=== PATIENT | female | born 1970 | race Caucasian/White ===

== ENCOUNTER 2024-01-25 05:53 | Observation (INO) ==
--- NOTE | 2024-01-10 12:52 | Anesthesiology Consultation ---
Date of Service January 10, 2024 Assessment & Plan (1) Encounter for pre-operative examination: - check urine test STAT am DOS. - Per assessment nurse on 01/10/24: No known infectious disease contacts, current infectious disease symptoms in past 10 days or COVID positive test result in the past 30 days. Chart Review Chart Review: Acceptable Risk for Surgery and Patient NOT seen in Pre Admission Testing History Surgery Operation Date: 01/25/24 07:30 Proposed Procedures p Robotic Laparoscopic Right Renal Cyst Decortfiication - Randal Shaikh MD Height/Weight Height: 6 ft Weight: 70.307 kg Allergies Allergy/AdvReac Type Severity Reaction Status Date / Time erythromycin base Allergy Unknown Rash Verified 01/10/24 12:20 Penicillins Allergy Unknown Rash Verified 01/10/24 12:20 Medications Home Medications Medication Instructions Recorded Confirmed Last Taken cholecalciferol (vitamin D3) 50 50 mcg PO DAILY 11/11/23 01/10/24 Unknown mcg (2,000 unit) capsule levothyroxine 125 mcg capsule 112 mcg PO QAM 11/11/23 01/10/24 Unknown sertraline 50 mg tablet 50 mg PO QPM 11/11/23 01/10/24 Unknown vitamin B complex 1 tab PO DAILY 11/11/23 01/10/24 Unknown Past Medical History Medical History (Updated 01/10/24 @ 12:48 by Cherrie Loyd PA-C) Anxiety CKD (chronic kidney disease), stage II History of hyperthyroidism radioactive iodine tx ~25-30 yrs ago Hypothyroidism Renal cyst Past Family History Family History Other No family history of adverse response to anesthesia Past Surgical History Surgical History History of esophagogastroduodenoscopy (EGD) Hx of colonoscopy Hx of melanoma excision right arm Hx of wisdom tooth extraction Social History Smoking Status: Never smoker Do You Dip or Chew Tobacco: No Hx Alcohol Use: No Hx Substance Use: No substance use type: does not use Lab Results Anesthesia Preop Results Results Anesthesia Widget: WBC 4.30 K/uL L 12/22/23 Hgb 13.3 g/dL (12.0-16.0) 12/22/23 Hct 40 % (37.0-47.0) 12/22/23 Plt 235 K/uL (130.0-400.0) 12/22/23 Na 140 mmol/L (136-145) 12/22/23 K 3.9 mmol/L (3.5-5.1) 12/22/23 Cl 104 mmol/L (98-107) 12/22/23 CO2 25 mmol/L (21-32) 12/22/23 BUN 14 mg/dL (7-18) 12/22/23 Creat 0.80 mg/dL (0.6-1.2) 12/22/23 Glucose Level 87 mg/dL (70-99) 12/22/23 Testing Laboratory Results Urine culture: < 10,000 col/mL of mixed organisms Electrocardiogram Date: 12/22/23 NSR, rate 71 bpm Chest X-Ray Date: 12/22/23 No acute cardiopulmonary disease. Other Testing Abdomen pelvis CT 06/25/24 Liver is mildly enlarged measuring 18.4 cm Large fluid signal cystic lesion of the upper pole right kidney measures 5.6 x 5.6 x 6.1 cm
[~2024-01-25 05:53] MED LIST: ALLERGY Noted to ORDERED Medication SCH
[2024-01-25] MEDS: LR 15ML/HR IV SCH (06:29)
[2024-01-25] MEDS ORDERED: fentaNYL citrate PF 100 MCG/2 ML VIAL IV PRN (07:01)
[2024-01-25] MEDS ORDERED: HYDROmorphone INJ 1 MG/ML SYRINGE IV PRN (07:01)
[2024-01-25] MEDS ORDERED: ATROPINE SULFATE 0.1 MG/ML 10ML SYR IV PRN (07:01)
[2024-01-25] MEDS ORDERED: PROMETHAZINE HCL 6.25 MG in SODIUM CHLORIDE 0.9% 50 ML IV PRN (07:01)
[2024-01-25] MEDS ORDERED: ePHEDrine sulfate 50 MG/ML AMP IV PRN (07:01)
[2024-01-25] MEDS ORDERED: ONDANSETRON INJ 2 MG/ML 2 ML VIAL IV PRN ×2 (07:01→10:21)
[2024-01-25] MEDS: SCOPOLAMINE 1 MG/72 HR TDSY PATCH TD ONE ×2 (07:03)
[2024-01-25] MEDS ORDERED: MIDAZOLAM HCL 1 MG/ML 2ML VIAL ONE (07:20)
[2024-01-25] MEDS ORDERED: PROPOFOL IV EMULSION 10 MG/ML 20 ML VIAL IV ONE (07:20)
[2024-01-25] MEDS ORDERED: LIDOCAINE 2% 2 ML VIAL/AMP(20MG/ML) INFIL ONE (07:20)
[2024-01-25] MEDS ORDERED: fentaNYL citrate PF 100 MCG/2 ML VIAL ONE ×2 (07:20→08:18)
[2024-01-25] MEDS ORDERED: ONDANSETRON INJ 2 MG/ML 2 ML VIAL ONE (07:21)
[2024-01-25] MEDS ORDERED: DEXAMETHASONE SOD INJ 4 MG/ML VIAL ONE (07:21)
[2024-01-25] MEDS ORDERED: ROCURONIUM BROMIDE 10 MG/ML 5 ML VIAL IV ONE ×2 (07:21→08:40)
[2024-01-25] MEDS ORDERED: MANNITOL 25% 12.5 GM/50 ML VIAL IV ONE (07:26)
[2024-01-25] MEDS ORDERED: ACETAMINOPHEN 1000 MG/100 ML IV IV ONE (07:26)
--- NOTE | 2024-01-25 07:27 | History & Physical Report ---
Date of Service January 25, 2024 Assessment & Plan (1) Renal cyst: Plan Right renal cyst decortication risks, benefits, and expectations reviewed History of Present Illness Primary Care Provider: Gio Valerio here for right robotic renal cyst decortication Allergies Allergy/AdvReac Type Severity Reaction Status Date / Time erythromycin base Allergy Unknown Rash Verified 01/25/24 06:12 Penicillins Allergy Unknown Rash Verified 01/25/24 06:12 Home Medications Medication Instructions Recorded Confirmed Type cholecalciferol (vitamin D3) 50 50 mcg PO DAILY 11/11/23 01/25/24 History mcg (2,000 unit) capsule levothyroxine 125 mcg capsule 112 mcg PO QAM 11/11/23 01/25/24 History sertraline 50 mg tablet 50 mg PO QPM 11/11/23 01/25/24 History vitamin B complex 1 tab PO DAILY 11/11/23 01/25/24 History Past Med/Surg History Problem List Encounter for pre-operative examination Renal cyst Medical History Anxiety CKD (chronic kidney disease), stage II History of hyperthyroidism radioactive iodine tx ~25-30 yrs ago Hypothyroidism Renal cyst Surgical History History of esophagogastroduodenoscopy (EGD) Hx of colonoscopy Hx of melanoma excision right arm Hx of wisdom tooth extraction Family History Other No family history of adverse response to anesthesia Social History Smoking Status: Never smoker Second Hand Exposure: No; Do You Dip or Chew Tobacco: No; Tobacco Cessation Education Requested by Patient: No Hx Alcohol Use: No Hx Substance Use: No Preferred Language: [place] Communication Ability: Effective Medicaid Billing Clerk Required: No Beliefs That Will Affect Care: None Current Living Situation: Family Other Information That Helps Us Care for You: No Feels Safe at Home: Yes Safety Concerns: Feels Safe At This Time Assistive Devices: Glasses Assistive Devices Comment: prn glasses Physical Exam Constitutional: well developed and well nourished Neck: neck nontender Respiratory: normal respiratory effort; no respiratory distress and does not use accessory muscles Cardiovascular: Rate/Rhythm: regular rate Vessels: radial pulses present Extremities: no edema Gastrointestinal (Abdomen): Inspection/Auscultation: abdomen normal to inspection Percussion/Palpation: abdomen soft; abdomen nontender and no guard ing Musculoskeletal: Head/Neck/Chest: normocephalic and head atraumatic Extremities: extremities normal to inspection Skin: no rashes and no lesions Trauma: no evidence of skin trauma Neurologic: awake; not obtunded Speech / Cognition: normal speech Motor/Sensory: no tremor Psychiatric: Orientation: alert and oriented x 3 Lymphatic: no lymphadenopathy Results & Data Vital Signs (Past 12 Hours) Vital Signs Temp Pulse Resp BP Pulse Ox O2 Del Method 01/25/24 06:17 37 C 88 18 152/89 H 100 Room Air
[2024-01-25] MEDS: CLINDA 900 MG **Premixed Bag IV SCH (07:36)
[2024-01-25] MEDS ORDERED: ePHEDrine sulfate 50 MG/ML AMP ONE (08:24)
[2024-01-25] MEDS ORDERED: SUGAMMADEX SODIUM 200 MG/2 ML VIAL IV ONE (08:48)
[2024-01-25] MEDS ORDERED: KETOROLAC 30 MG/ML VIAL ONE (08:54)
[2024-01-25] MEDS: BUPIVACAINE 0.25% PF 30 ML VIAL ONE (09:19)
[2024-01-25] MEDS: GELATIN SPONGE 12-7MM ONE (09:19)
--- NOTE | 2024-01-25 09:30 | Operative Report ---
PG Post Operative Report Pre & Post Diagnosis Operation Date: 01/25/24 07:30 Pre-Op Diagnosis: Cyst of Kidney, Acquired Post-Op Diagnosis: Cyst of Kidney, Acquired I identified the patient and participated in the time-out.: Yes Procedure Operation Date: 01/25/24 07:30 Actual Procedures p Robotic Assisted Right Laparoscopic Renal Cyst Decortifiication(Right) - Randal Shaikh MD Surgeon Randal Shaikh MD Mechanical Assembly Kalpana Rosas Estimated Blood Loss 5 Findings Consistent with Post-Op Diagnosis Specimens Right renal cyst wall Description of Procedure Patient was identified in the preoperative holding area, appropriate informed consents were reviewed and completed. She was transported the operating suite she was placed in the left side down right side up lateral decubitus position after induction of general anesthesia and administration of preoperative antibiotics. She was padded and placed appropriately and sterilely prepped in standard fashion. To begin the case we passed a Veress needle into the right upper quadrant. Initial insufflation had slightly higher pressures than ideal and I relocated the Veress needle and passed again. We then insufflated appropriately. We marked 3 potential robotic port locations beginning approximately 3 fingerbreadths below the costal margin with the next port approximately 8 cm inferior and another approximately 8 cm inferior to that. The middle port was utilized to enter the abdomen with a 5 mm 0 degree lens. Inspection revealed a healthy abdominal wall without significant adhesions. She has a relatively large liver which draped over the entire kidney and projects quite medially. I marked 2 midline 5 mm engineer first assistant ports with the hope of using 1 has a liver retractor and the other as an assisting port. Unfortunately, the angulation of the liver made it quite hard to use the superior port as a liver retractor inserted and we reserve that port for the initial time being. We used the lower port to retract the liver and decided to forego an additional engineer first assistant port. Robotic scissors and a bipolar fenestrated grasper were utilized through the 2 robotic ports. A 30 degree lens was used throughout the case. I first elevated the liver. We then dissected through some of the hepatorenal attachments to free the upper aspect of the cyst which was visual through within the very thin Gerota's fascia. We skeletonized the superior, anterior and medial/lateral trejo of the cyst. The cyst was then popped anteriorly and all clear cyst fluid was irrigated out of it. We opened this incision and inspected the inner aspect of the cyst. Utilizing the scissors and electrocautery we excised the redundant cyst wall close to the border of the cyst with the remaining healthy kidney. I then used the bipolar electrocautery to again cauterized the cut edge of the cyst wall. We irrigated and confirmed excellent hemostasis. Draining and remov ing the cyst clearly reduced some of the pressure on the liver and allow the liver to fall back into more anatomical position. The cyst wall was grasped and a locking grasper and withdrawn with a 5 mm port through the midline. It was passed off the table as a specimen. We then removed all insufflation from the abdomen and extracted the other ports. All ports were closed in 2 layers utilizing a 0 Vicryl at the deeper layer followed by 4-0 Monocryl through the skin. All were dressed with Dermabond. All were infiltrated with half percent Marcaine. Padilla catheter was removed, no drains were left. She was reversed of anesthesia and taken to the recovery room in stable condition. I attest to the content of the Intraoperative Record and any orders documented therein. Any exceptions are noted below.
--- NOTE | 2024-01-25 09:57 | Anesthesiology Progress Note ---
Date of Service January 25, 2024 Anesthesia Post Procedure Vital Signs Vital Signs: Temp Pulse Pulse Resp BP Pulse Ox O2 Del Method 01/25/24 09:55 36.6 C 77 20 117/56 L 99 Room Air 01/25/24 09:45 79 16 120/60 100 Oxymask 01/25/24 09:35 73 18 114/60 100 Oxymask 01/25/24 09:25 36.0 C L 89 16 123/51 L 100 Oxymask 01/25/24 06:17 37 C 88 18 152/89 H 100 Room Air O2 Flow Rate 01/25/24 09:55 01/25/24 09:45 4 01/25/24 09:35 4 01/25/24 09:25 6 01/25/24 06:17 Transfer of Care Handoff Completed per policy Notes Mental Status: alert / awake / arousable Patient Amnestic to Procedure: Yes Nausea / Vomiting: adequately controlled Pain: adequately controlled Airway Patency, RR, SpO2: stable & adequate BP & HR: stable & adequate Hydration State: stable & adequate Anesthetic Complications: no major complications apparent and Pt Satisfied with anesthetic care
[2024-01-25] MEDS: SODIUM CHLORIDE 0.9% 1,000 ML IV SCH (10:10)
[2024-01-25] MEDS ORDERED: oxyCODONE HCL IR 5 MG TAB (IMMEDIATE RELEASE) PO PRN ×2 (10:21)
[2024-01-25] MEDS ORDERED: MoRPHine SULFATE 4 MG/ML 1 ML CARP\\VIAL IV PRN (10:21)
[2024-01-25] MEDS ORDERED: MoRPHine SULFATE 2 MG/ML CARP IV PRN (10:21)
[2024-01-25] MEDS: ACETAMINOPHEN 325 MG TAB PO SCH (13:46)
[2024-01-25] MEDS ORDERED: CHECK SCOPOLAMINE PATCH PLACEMENT SCH (16:00)
[2024-01-25] MEDS: CLINDAMYCIN/D5W 300 MG/50 ML BAG IV SCH (17:14)
[2024-01-25] MEDS: DOCUSATE SODIUM 100 MG CAP PO SCH (20:14)
[2024-01-25] MEDS: SERTRALINE HCL 50 MG TABLET PO SCH (20:14)
[2024-01-26] MEDS: LEVOTHYROXINE SODIUM 112 MCG TABLET PO SCH (05:36)
[2024-01-26 06:47] LABS: Basophils # (auto) 0.03 K/uL (0.00-0.20); Basophils % (auto) 0.3 %; Eosinophils # (auto) 0.01 K/uL (0.00-0.50); Eosinophils % (auto) 0.1 %; Hematocrit (blood only) 40.7 % (37.0-47.0); Hemoglobin 13.2 g/dl (12.0-16.0); Immature Granulocytes # (auto) 0.03 K/uL (0.01-0.20); Immature Granulocytes % (auto) 0.3 %; Lymphocytes # (auto) 1.86 K/uL (1.20-3.40); Lymphocytes % (auto) 20.1 %; Mean Corpuscular Hgb Conc 32.4 g/dL (32.0-36.0); Mean Corpuscular Volume 92.5 fL (80.0-100.0); Mean Platelet Volume 9.4 fL (9.4-12.4); Monocytes # (auto) 0.56 K/uL (0.11-0.59); Neutrophils # (auto) 6.78 K/uL (1.40-6.50); Neutrophils % (auto) 73.2 %; Platelet Count 224 K/uL (130-400); RDW Coefficient of Variation 13.1 % (11.5-14.5); RDW Standard Deviation 44.6 fL (36.4-46.3); White Blood Count 9.27 K/ul (4.8-10.8)
[2024-01-26 07:09] LABS: BUN Creatinine Ratio 12.5 (10-20); Calcium 9.1 mg/dl (8.6-10.3); Creatinine Clr Calc Pharmacy 83.7 ml/min; Est GFR (African American) 88.2 ml/min; Est GFR (Non-African American) 76.1 ml/min; Potassium 3.8 mmol/L (3.5-5.1)
--- NOTE | 2024-01-26 07:58 | Urology Progress Note ---
Date of Service January 26, 2024 Assessment & Plan (1) Renal cyst: Plan Postop day #1 status post robotic right renal cyst decortication. Doing extremely well Plan for discharge home this morning Admission and Anticipated Discharge Date Admission Date: January 25, 2024 Subjective No major issues overnight Ambulatory Tolerating a diet Minimal pain Labs all stable Vitals all stable Physical Exam Physical Exam: Abdomen soft, incisions appropriate Results & Data Vital Signs (Past 12 Hours) Vital Signs Temp Pulse Resp BP Pulse Ox O2 Del Method 01/26/24 07:47 36.9 C 69 16 112/67 99 01/25/24 21:32 36.9 C 69 16 112/67 99 Room Air PG Care Time/CCT Total # of Minutes Spent Total Time Spent with Patient: Total time spent is greater than 50% in coordination of care (as documented) at patient's floor/unit and/or counseling patient: Coding Level of Care Code None Diagnoses Renal cyst N28.1
[2024-01-26] MEDS: CHOLECALCIFEROL 25 MCG (1000 UNITS) TAB PO SCH (08:23)
[2024-01-26] MEDS: VITAMIN B COMPLEX TAB PO SCH (08:23)
--- NOTE | 2024-01-26 08:57 | Discharge Summary ---
Date of Service January 26, 2024 Admission HPI Per Admitting Provider here for right robotic renal cyst decortication Admission Exam Per Admitting Provider Constitutional: well developed and well nourished Neck: neck nontender Respiratory: normal respiratory effort; no respiratory distress and does not use accessory muscles Cardiovascular: Rate/Rhythm: regular rate Vessels: radial pulses present Extremities: no edema Gastrointestinal (Abdomen): Inspection/Auscultation: abdomen normal to inspection Percussion/Palpation: abdomen soft; abdomen nontender and no guarding Musculoskeletal: Head/Neck/Chest: normocephalic and head atraumatic Ex tremities: extremities normal to inspection Skin: no rashes and no lesions Trauma: no evidence of skin trauma Neurologic: awake; not obtunded Speech / Cognition: normal speech Motor/Sensory: no tremor Psychiatric: Orientation: alert and oriented x 3 Lymphatic: no lymphadenopathy Principal Diagnosis Right renal cyst Discharge Exam Abdomen soft, incisions appropriate Discharge Data Allergies Allergy/AdvReac Type Severity Reaction Status Date / Time erythromycin base Allergy Unknown Rash Verified 01/25/24 06:12 Penicillins Allergy Unknown Rash Verified 01/25/24 06:12 Procedures Performed Operation Date: 01/25/24 07:30 Actual Procedures p Robotic Assisted Right Laparoscopic Renal Cyst Decortifiication(Right) - Randal Shaikh MD Hospital Course (1) Renal cyst: Plan Postop day #1 status post robotic right renal cyst decortication. Doing extremely well Plan for discharge home this morning Total Time Total Time Spent Total Time Spent (In Minutes): 20 Discharge Plan Discharge Items Patient Disposition: Home - Self-Care Reason For Visit: Cyst of Kidney, Acquired Discharge Diagnosis: Cyst of kidney, acquired Activity: Per Instructions section Lifting: No more than 25 pounds Bathing Comment: Okay to shower after discharge Sexual Activity: When tolerated Exercise/Sports: Wait until after follow-up appointment Driving/Machine Use: No driving while taking prescription pain medication Non-emergency contact: Surgeon and Urologist Call non-emergency contact if: your pain is not controlled, your temperature is above 101, your wound has increased redness, your wound has increased drainage and your wound pain has increased Follow-up/Referrals: Marnie Poep CRNP [Nurse Practitioner] - 02/09/24 2:30 pm Gio Valerio M.D. [Primary Care Provider] - Diet: Regular Addtl Attending Provider Instructions: Please take all medications as prescribed and keep all follow-ups as scheduled. Please call our office at [phone] with any questions, concerns or need to reschedule appointments for any reason. We are happy to assist you. You can utilize Tylenol and Advil at home for pain management. Prescription was sent to your pharmacy for Percocet as needed for breakthrough pain. Percocet contains Tylenol. Do not exceed 3000 mg of Tylenol in 24 hours. Recovering at home: We recommend having someone with you for the first few days after surgery to help care for you. It is okay to shower tomorrow. Please avoid swimming, bathing or using hot tub until incisions are well healed. Avoid driving until you are not requiring pain medication any further. Walk at least a few times a day. Increase your distance, as you feel able. Stairs in your home are okay. Please avoid strenuous or sexual activity until your follow-up. We recommend using stool softener (i.e. Colace) to prevent constipation and straining, especially the first two weeks post operatively. Call [facility] at [phone] if you experience: Chest pain or trouble breathing (call 911 or go to the hospital). Fever of 101F or higher Symptoms of infection at incision site, including redness or swelling, warmth, or bad-smelling drainage If you have catheter, and you notice: o Bloody urine or drainage that is dark red or has large clots (Please remember a small amount of blood is normal) o No drainage from the catheter for more than 6 hours o The catheter comes out of your bladder Pain that is not controlled with medicines Pending Studies at Discharge: No Stand-Alone Forms: [facility] [place], Smoking Cessation Medications and DC Order Prescriptions: New oxycodone-acetaminophen [Percocet] 5-325 mg tablet 1 tab PO TID PRN (Reason: pain) Qty: 5 0RF Rx Instructions: as directed for post operative pain Continued levothyroxine 125 mcg capsule 112 mcg PO QAM sertraline 50 mg tablet 50 mg PO QPM cholecalciferol (vitamin D3) 50 mcg (2,000 unit) capsule 50 mcg PO DAILY vitamin B complex Tablet 1 tab PO DAILY Discharge Orders: Discharge Order (Routine); Ordered 01/26/24 Ordered By: Kalpana Rosas Admission Data Admit Date/Time: 01/25/24 09:21 Attending Provider: Randal Shaikh Admit Provider: Randal Shaikh Primary Care Provider: Gio Valerio Other Interventions: Discharge Summary Assessment (RN) Last Done: 01/26/24 07:47 Coding Level of Care Code 22713 IN/OBS DISCH 30 MIN/LESS Diagnoses Renal cyst N28.1
== END 2024-01-26 10:03 | disposition home or self-care (01) ==
LOC: ASU 05:53 → 3E 09:21 → INTOOBSV 09:21